=== PATIENT | male | born 1985 | race Native Hawaiian/Other Pacific Islander ===

== ENCOUNTER 2018-10-27 13:59 | Outpatient (CLI) | payer OTHER | END 2018-10-27 19:49 | disposition home or self-care (01) | LOC: RAD 13:59 | DX: S82.201D Unspecified fracture of shaft of right tibia, subsequent encounter for closed fracture with routine healing (principal) ==

== ENCOUNTER 2018-11-27 11:53 | Outpatient (CLI) | payer OTHER | END 2018-11-27 22:40 | disposition home or self-care (01) | LOC: RAD 11:53 | DX: S82.201D Unspecified fracture of shaft of right tibia, subsequent encounter for closed fracture with routine healing (principal) ==

== ENCOUNTER 2019-01-19 11:02 | Outpatient (CLI) | payer OTHER | END 2019-01-19 23:24 | disposition home or self-care (01) | LOC: RAD 11:02 | DX: S82.201D Unspecified fracture of shaft of right tibia, subsequent encounter for closed fracture with routine healing (principal) ==